=== PATIENT | female | born 1980 | race African-American/Black ===

== ENCOUNTER 2023-02-24 17:42 | Emergency (ER) | payer MEDICAID ==
[~2023-02-24] VITALS: Ht 162.6 cm; Wt 70.0 kg
[2023-02-24 17:58] VITALS: O2SAT 99
[2023-02-24] MEDS ORDERED: LABETALOL 5MG/ML SYR 20 MG/4 ML SYRINGE IV NR (18:15)
[2023-02-24] MEDS ORDERED: LABETALOL HCL VIAL 20 MG/4 ML VIAL IV ONE (18:15)
[2023-02-24 18:29] VITALS: TEMP 98.5
[2023-02-24 18:45] LABS: BASOPHILS % 0.6 % (0.0-2.0); HEMOGLOBIN. 10.5 g/dL (12.0-16.0); LYMPHOCYTES % 8.5 % (20.0-50.0); MEAN CORPUSCULAR HEMOGLOBIN 27.5 pg (28.0-32.0); MEAN CORPUSCULAR HGB CONC 31.8 g/dL (31.0-37.0); MEAN CORPUSCULAR VOLUME 86.7 fL (81.0-99.0); MEAN PLATELET VOLUME 9.4 fl (7.4-10.4); MONOCYTES % 6.9 % (2.0-8.0); PLATELET 154 x1000/uL (130-400); RED BLOOD CELL COUNT 3.81 mill/uL (4.2-5.4); RED CELL DISTRIBUTION WIDTH 15.1 % (11.6-14.6); WHITE BLOOD COUNT 19.1 x1000/uL (4.5-11.0)
[2023-02-24 19:28] LABS: ALANINE AMINOTRANSFERASE 17 IU/L (10-49); ALBUMIN 3.8 g/dL (3.2-4.8); ASPARTATE AMINOTRANSFERASE 29 IU/L (<34); B-HCG QUANTITATIVE 22605 mIU/mL (<3); BILIRUBIN TOTAL 0.6 mg/dL (0.1-1.0); CALCIUM 9.5 mg/dL (8.7-10.4); CARBON DIOXIDE 21 mEq/L (21-32); CHLORIDE 98 mEq/L (98-107); CREATININE 2.7 mg/dL (0.6-1.0); GLUCOSE 86 mg/dL (70-105); POTASSIUM 3.1 mEq/L (3.5-5.1); PROTEIN TOTAL 7.5 g/dL (6.0-8.3); SODIUM 132 mEq/L (136-145); UREA NITROGEN BLOOD 25 mg/dL (9-23)
[2023-02-24] MEDS ORDERED: DEXAMETHASONE 10 MG/ML VIAL IV ONE (19:30)
[2023-02-24] MEDS ORDERED: MANNITOL 20% 250 ML IV NR (19:30)
[2023-02-24] MEDS ORDERED: LEVETIRACETAM 500MG PREMIX 100 ML IV ONE (19:30)
[2023-02-24] MEDS ORDERED: MANNITOL 20% (20GM/100ML) BAG 500ML PREMIX IV ONE (19:30)
[2023-02-24 19:41] LABS: TROPONIN I HIGH SENSITIVITY 92 ng/L (3.0-34)
[2023-02-24] MEDS ORDERED: LABETALOL HCL 100 MG in DEXT 5% WATER 80 ML IV STA (19:57)
[2023-02-24] MEDS ORDERED: MAGNESIUM 4 G PREMIX 100 ML IV ONE (20:00)
[2023-02-24] MEDS ORDERED: LABETALOL 5MG/ML SYR 20 MG/4 ML SYRINGE IV ONE (20:00)
[2023-02-24] MEDS ORDERED: MAGNESIUM 2 G PREMIX 50 ML IV ONE (20:00)
[2023-02-24] MEDS ORDERED: MANNITOL 20% 500 ML IV NR (20:18)
[2023-02-24] MEDS ORDERED: LABETALOL HCL 100 MG in DEXT 5% WATER 80 ML IV NR (20:30)
[2023-02-24 20:53] LABS: URIC ACID 12.7 mg/dL (3.1-7.8)
[2023-02-24] MEDS ORDERED: HYDRALAZINE 20MG/ML VIAL IV ONE (22:00)
[2023-02-24 22:31] LABS: CLARITY URINE CLEAR (CLEAR); COLOR URINE YELLOW (YELLOW); PH URINE 6.5 (4.5-8.0); PROTEIN URINE 3+ (NEGATIVE); SPECIFIC GRAVITY URINE 1.014 (1.005-1.030)
[2023-02-24 22:32] LABS: GLUCOSE URINE NEGATIVE (NEGATIVE); KETONES URINE NEGATIVE (NEGATIVE); LEUKOCYTE ESTERASE URINE TRACE (NEGATIVE); NITRITE URINE NEGATIVE (NEGATIVE); OCCULT BLOOD URINE TRACE (NEGATIVE); UROBILINOGEN URINE 0.2 E.U./dL (0.2-1.0)
[2023-02-24 22:58] LABS: WBC URINE 15-25 /hpf (0-2)
[2023-02-24 23:00] LABS: BACTERIA URINE FEW; SQUAMOUS EPITHELIAL CELL URINE 2+ /lpf (RARE/1+)
[2023-02-24 23:14] VITALS: BP 135/85; PULSE 70; RESP 20
[2023-02-24] MEDS ORDERED: MAGNESIUM 2 G PREMIX 50 ML IV NR (23:30)
[2023-02-27 09:06] LABS: CHLAMYDIA TRACHOMATIS NAA Negative (Negative); NEISSERIA GONORRHOEAE NAA Negative (Negative)
== END 2023-02-24 23:20 | disposition short-term general hospital (02) ==
LOC: ER 17:42
DX: O26.892 Other specified pregnancy related conditions, second trimester (principal); I62.9 Nontraumatic intracranial hemorrhage, unspecified; O14.92 Unspecified pre-eclampsia, second trimester; Z3A.24 24 weeks gestation of pregnancy
CPT/HCPCS: 87491; 87591; 80053; 81003; 84702; 83880; 84550; 85025; 86592; 87086; 84484; 36415; 70450; 76815; 93005; 96367; 96368; 96365; 96375; 96376; 99291; J1953; J1100; J0360; J3490 ×2; J3475 ×2; J7060; Z7610 ×2